=== PATIENT | female | born 1945 | race Caucasian/White ===

== ENCOUNTER 2024-04-13 16:24 | Emergency (ER) | payer OTHER, SELFPAY ==
[2024-04-13] VITALS (15 sets, daily range): BP systolic 151–216; BP diastolic 64–76; PULSE 54–79; RESP 15–25; TEMP 36.9; O2SAT 97–99
--- NOTE | 2024-04-13 16:15 | RT.EKG_ITS ---
APPROVED REPORT Exam: Resting ECG Reason for Exam: Syncope Patient Location: E HR:63 bpm ECG Measurements Heart Rate 63 AXIS AL 151 P 48 QRSd 82 QRS 5 QT 434 T 53 QTc 446 Conclusion Sinus rhythm...normal P axis, V-rate 60- 99 Probable left atrial enlargement...P >50mS, <-0.10mV V1 Probable left ventricular hypertrophy...multiple LVH criteria Physician: elevation in V1-2, no tombstoning, no recip depressions. no stemi
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
[2024-04-13 16:49] LABS: Abs Immature Grans 0.02 10^3/uL (0.0-0.06); Absolute Basophil Count 0.02 10^3/uL (0.0-0.2); Absolute Eosinophil Count 0.11 10^3/uL (0.0-0.7); Absolute Lymphocyte Count 1.94 10^3/uL (1.2-3.4); Absolute Monocyte Count 0.36 10^3/uL (0.1-0.8); Absolute Neutrophil Count 2.77 10^3/uL (1.2-6.7); Basophils % 0.4 %; Eosinophils % 2.1 %; HCT 41.6 % (36.0-46.0); HGB 14.1 g/dL (11.2-15.7); Immature Grans % 0.4 %; Lymphocytes % 37.2 %; MCHC 33.9 % (32.0-36.0); MCV 95 fL (80-95); Monocytes % 6.9 %; Platelet Count 177 10^3/uL (130-400); RDW-SD 45.1 fL; WBC 5.22 10^3/uL (4.4-10.8)
[2024-04-13 16:56] LABS: Bilirubin Negative (Negative); Blood Small (Negative); Clarity Clear (Clear); Glucose Negative (Negative); Ketones Negative (Negative); Leukocyte Esterase Negative (Negative); Nitrite Negative (Negative); Urobilinogen 0.2 mg/dL (Up to 0.2)
[2024-04-13 17:03] LABS: Bacteria Negative HPF (Negative); C & S Indicated? No; Casts Negative LPF (Negative); Crystals Negative HPF (Negative); Epithelial Cells Negative HPF (Negative); Mucus Negative (Negative); RBC 0-2 HPF (0-2); WBC 0-2 HPF (0-5)
[2024-04-13 17:07] LABS: ALT 38 U/L (14-59); AST 38 U/L (15-37); Albumin 4.3 g/dL (3.4-5.0); Alkaline Phosphatase 142 U/L (46-116); BUN 21 mg/dL (7-18); Bilirubin, Total 0.55 mg/dL (0.2-1.0); CREATININE 0.9 mg/dL (0.55-1.02); Calcium 9.7 mg/dL (8.5-10.1); Chloride 109 mmol/L (98-107); Estimated GFR 65.44 (mL/min/1.73m2); Glucose 93 mg/dL (74-106); Magnesium 2.2 mg/dL (1.8-2.4); Potassium 3.6 mmol/L (3.5-5.1); Sodium 145 mmol/L (136-145); Total Protein 7.8 g/dL (6.4-8.2); Troponin I < 50 ng/L (< or =60)
[2024-04-13 17:07] LABS: *AMPHETAMINES SCREEN URINE Negative (Negative); *BARBITURATES SCREEN URINE Negative (Negative); *BENZODIAZEPINES SCREEN URINE Negative (Negative); Cannabinoids THC Negative (Negative); Cocaine Screen,Urine Negative (Negative); METHADONE URINE SCREEN Negative (Negative); OPIATES URINE SCREEN Negative (Negative)
[2024-04-13 17:08] LABS: Tricyclic Antidepressants Negative (Negative)
[2024-04-13 17:18] LABS: ETHANOL BLOOD < 3.0 mg/dL (<10)
== END 2024-04-13 18:03 | disposition home or self-care (01) ==
LOC: ER 18:13
PROVIDERS: Emergency Provider Registered Nurse Emergency; PCP Family Medicine
DX: R55 Syncope and collapse (principal); V48.0XXA Car driver injured in noncollision transport accident in nontraffic accident, initial encounter
CPT/HCPCS: 80053; 80307; 93005; 99284; 70450; 71046; 80320; 81003; 81015; 83735; 84484; 85025; 93010; 99283

== ENCOUNTER → 2024-07-20 13:14 | Outpatient (BNVA) | payer MEDICARE, OTHER, SELFPAY | PROVIDERS: PCP Nurse Practitioner Family; Referring Provider Nurse Practitioner Family; Visit Provider Podiatrist | DX: M20.41 Other hammer toe(s) (acquired), right foot (principal); S93.524A Sprain of metatarsophalangeal joint of right lesser toe(s), initial encounter; M79.671 Pain in right foot; M79.672 Pain in left foot; M77.41 Metatarsalgia, right foot | CPT/HCPCS: 29540; 99214 ==

== ENCOUNTER 2024-08-30 03:44 | Outpatient (CLI) | payer MEDICARE, SELFPAY ==
[2024-08-30 12:53] LABS: Abs Immature Grans 0.01 10^3/uL (0.0-0.06); Absolute Basophil Count 0.02 10^3/uL (0.0-0.2); Absolute Eosinophil Count 0.07 10^3/uL (0.0-0.7); Absolute Lymphocyte Count 1.63 10^3/uL (1.2-3.4); Absolute Monocyte Count 0.34 10^3/uL (0.1-0.8); Absolute Neutrophil Count 3.41 10^3/uL (1.2-6.7); Basophils % 0.4 %; Eosinophils % 1.3 %; HCT 40.7 % (36.0-46.0); HGB 13.4 g/dL (11.2-15.7); Immature Grans % 0.2 %; Lymphocytes % 29.7 %; MCH 31.8 pg (27.0-33.0); MCHC 32.9 % (32.0-36.0); MCV 96 fL (80-95); MPV 10.5 fL (8.0-11.0); Monocytes % 6.2 %; Neutrophils % 62.2 %; Platelet Count 180 10^3/uL (130-400); RBC 4.22 10^6/uL (3.93-5.22); RDW-SD 46.2 fL; WBC 5.48 10^3/uL (4.4-10.8)
[2024-08-30 13:10] LABS: Hemoglobin A1C 5.4 % (<5.7)
[2024-08-30 13:20] LABS: ALT 26 U/L (14-59); Albumin 3.9 g/dL (3.4-5.0); Alkaline Phosphatase 137 U/L (46-116); Anion Gap 8.6 mmol/L (3-11); BUN 22 mg/dL (7-18); Bilirubin, Total 0.75 mg/dL (0.2-1.0); CO2 28.4 mmol/L (21.0-32.0); CREATININE 0.7 mg/dL (0.55-1.02); Calcium 9.7 mg/dL (8.5-10.1); Calculated LDL 91 mg/dL (<100); Chloride 108 mmol/L (98-107); Cholesterol 204 mg/dL (<200); Estimated GFR 87.92 (mL/min/1.73m2); Glucose 101 mg/dL (74-106); HDL Cholesterol 100 mg/dL (40-60); Potassium 4.5 mmol/L (3.5-5.1); Sodium 145 mmol/L (136-145); TSH (W/Ref FT4) 1.12 uIU/mL (0.36-3.74); Total Protein 7.3 g/dL (6.4-8.2); Triglyceride 69 mg/dL (<150)
[2024-08-30 13:45] LABS: AST 24 U/L (15-37)
[2024-08-30 17:44] LABS: Lab Add On Test DONE
[2024-08-30 17:47] LABS: GGT 15 U/L (5-55)
[2024-08-30 19:32] LABS: HBs Antibody, Quant <3.1 mIU/mL (See Note); Hep B Surface Ab Negative (See Note); Hepatitis B Core Antibody Negative (Negative); Hepatitis B Surface Antigen Negative (Negative)
[2024-08-30 19:39] LABS: HIV-1/2 Ag & Ab Screen Negative (Negative)
[2024-08-30 19:45] LABS: Hepatitis C Ab w Rflx HCV PCR Negative (Negative)
== END 2024-08-30 03:45 | disposition home or self-care (01) ==
LOC: LOS 03:44
PROVIDERS: PCP Nurse Practitioner Family; Visit Provider Nurse Practitioner Family
DX: E78.5 Hyperlipidemia, unspecified (principal); R73.01 Impaired fasting glucose; Z11.59 Encounter for screening for other viral diseases; I34.0 Nonrheumatic mitral (valve) insufficiency; I10 Essential (primary) hypertension; Z11.4 Encounter for screening for human immunodeficiency virus [HIV]; R74.8 Abnormal levels of other serum enzymes
CPT/HCPCS: 36415; 80053; 80061; 86704; 86706; 86803; 87340; 87389; 82977; 83036; 84443; 85025

== ENCOUNTER 2024-08-31 02:25 | Outpatient (CLI) | payer MEDICARE, SELFPAY ==
--- NOTE | 2024-08-31 07:00 | DI.RAD_ITS ---
Exam(s) XR FOOT RT COMPLETE EXAM: XR FOOT RT COMPLETE CLINICAL HISTORY: Pain in right foot,m79.671. TECHNIQUE: 2D digital imaging was performed. Three views. COMPARISON: CR XR FOOT LT COMPLETE from 08/31/2024 FINDINGS: BONES: No acute fracture is present. No bony destructive lesion is seen. Plantar calcaneal spur. JOINTS: No dislocation present. Mild degenerative changes. Varus deviation of the 2nd through 5th t oes. SOFT TISSUE: Normal. IMPRESSION: Varus deviation of the 2nd through 5th toes. Mild degenerative changes and small heel spur. DATA REPOSITORY: RADIATION DOSE DELIVERED:
--- NOTE | 2024-08-31 12:15 | DI.RAD_ITS ---
Exam(s) XR FOOT LT COMPLETE EXAM: XR FOOT LT COMPLETE CLINICAL HISTORY: Jose M79.672 PAIN LEFT FOOT. TECHNIQUE: 2D digital imaging was performed. Three views. COMPARISON: CR XR FOOT RT COMPLETE from 08/31/2024 FINDINGS: BONES: No acute fracture is present. No bony destructive lesion is seen. JOINTS: No dislocation present. Mild degenerative changes. Varus deviation of the 2nd through 5th toes. Plantar arch is maintained. SOFT TISSUE: Normal. IMPRESSION: Varus deviation of the 2nd through 5th toes. Mild degenerative changes. DATA REPOSITORY: RADIATION DOSE DELIVERED:
== END 2024-08-31 02:45 ==
LOC: DI 02:25
PROVIDERS: PCP Nurse Practitioner Family; Visit Provider Podiatrist
DX: M79.671 Pain in right foot (principal); M79.672 Pain in left foot
CPT/HCPCS: 73630

== ENCOUNTER 2024-09-07 00:54 | Outpatient (CLI) | payer MEDICARE, SELFPAY ==
--- NOTE | 2024-09-07 08:30 | DI.US_ITS ---
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 Ejection fraction is 60 to 65%. Wall motio n is normal Normal right ventricular size and function Left atrium is severely dilated. Right atrium is moderately dilated Aortic valve is sclerotic. Number of leaflets cannot be determined. There is moderate aortic stenos is. Peak gradient is 44, mean 28 mmHg. Calculated aortic valve area 0.8 cm??. There is no aortic r egurgitation Mitral annular calcification. Mild to moderate mitral regurgitation Estimated right ventricular systolic pressure is 29 mmHg Wall motion Left Ventricle The left ventricle is normal size. The left ventricular systolic function is normal. The left ventric ular ejection fraction is within the normal range. There is normal left ventricular wall thickness. T here is normal LV segmental wall motion. There is no ventricular septal defect visualized. LVEF is 60 -65%. Right Ventricle The right ventricle is normal size. The right ventricular systolic function is normal. Atria Left atrium is severely dilated. Right atrium is moderately dilated. The interatrial septum is intact with no evidence for an atrial septal defect. Aortic Valve Aortic valve is calcified. Number of aortic valve leaflets could not be assessed. Moderate aortic donald nosis. Peak aortic valve gradient is 44.38_mmHg. Highest mean aortic valve gradient is 28.14_mmHg. Ca lculated SAHIL by the continuity equation is 0.8 cm2. No aortic regurgitation is present. Mitral Valve Miitral annular calcification. No evidence of mitral valve stenosis. Mild to moderate mitral regurgit ation. Tricuspid Valve The tricuspid valve is normal in structure. There is no tricuspid valve stenosis. Trace tricuspid reg urgitation. The RVSP is 28.8mmHg. Pulmonic Valve The pulmonary valve is normal in structure. There is no pulmonic valvular stenosis. Trace pulmonic re gurgitation. Great Vessels The aortic root is normal in size. Aortic arch is not well visualized. IVC is normal in size and trupti apses >50% with inspiration. Pericardium There is no pericardial effusion. 2D Dimensions IVSD d PLAX 0.91 cm F: 0.6-1.0 Ao Root d 2.39 cm F: 2.7 - 3.3 LVPW d PLAX 0.90 cm F: 0.6 - 1.0 Left Atrium 0.00 cm F: 2.7 - 3.8 LVID d PLAX 4.20 cm F: 3.8 - 5.2 LVDs 2.73 cm F: 2.2 - 3.5 LV EF Teichholz 64.7 % FS 35.03 % LV EDV (Teich) 78.6 mL LV ESV (Teich) 27.7 mL Auto EF LV EDV A4C 83.7 mL LV EDV A2C 101.3 mL LV EDV BP 91.5 mL LV ESV A4C 33.9 mL LV ESV A2C 41.5 mL LV ESV BP 37.9 mL LVEF(%) A4C 59.5 % LVEF(%) A2C 59.0 % LVEF(%) BP 58.5 % LV SV A4C 49.8 ml LV SV A2C 59.8 ml LV SV BP 53.6 ml LV CO A4C 2.5 L/min LV CO A2C 3.2 L/min LV CO BP 2.9 L/min HR A4C 50.78 BPM HR A2C 53.34 BPM LV EDV Index (BP) LA Volume LA Length A4C 4.4 cm LA Length A2C 5.4 cm LA Area A4C s 17.27 cm2 LA Area A2C s 23.00 cm2 LA Vol A4C A-L 58.06 mL LA Vol A2C A-L 83.35 mL LA Vol Biplane A-L 77.3 mL LA Vol/BSA A4C A-L LA Vol/BSA A2C A-L LA Vol/BSA BP A-L 51.9 mL/m2 LA Vol A4C MOD 53.8 mL LA Vol A2C MOD 77.4 mL LA Vol BP MOD 71.7 mL RA Volume RA Area A4C 13.2 cm2 RA ESV A4C (A-L) 35.5mL RA Vol/BSA A4C A-L RA Length A4C 4.2 cm RA ESV A4C (MOD) 32.3mL LV Diastology MV E Vmax 1.14 (0.4-1.3 m/s) MV A Vmax 1.25 (0.4-1.3 m/s) E/A Ratio 0.9 Aortic Valve AoV Vmax 3.33 m/s LVOT Vmax 0.84 m/s AoV Peak Grad 44.4 mmHg LVOT Peak Grad 2.8 mmHg AoV VTI 0.939 m LVOT VTI 0.237 m AoV Mean Anuj. 2.54 m/s LVOT Mean Grad 1.8 mmHg AoV Mean Grad 28.1 mmHg AV Regurg Peak Gr. 44.38 mmHg Velocity Ratio 0.25 Mitral Valve MV DT 290 (160-240 msec) MV Vmax TIPS 1.24 m/s MV Mean Grad 2.0 (<2mmHg) MV VTI 0.516 m Pulmonary Valve PV Vmax 0.87 (0.5-1.5 m/s) RVOT Vmax 0.69 m/s PV Peak Grad 3.0 mmHg RVOT Peak Gr. 1.9 mmHg PV Mean Anuj 0.63 m/s RVOT VTI 0.152 m PV Mean Grad 1.8 mmHg RVOT Mean Gr. 1.3 mmHg Tricuspid Valve RA Pressure 3.00 mmHg TR Vmax 2.54 m/s TR Peak Grad 25.7 mmHg RVSP (TR) 28.8 mmHg
== END 2024-09-07 01:14 ==
LOC: DI 00:54
PROVIDERS: PCP Nurse Practitioner Family; Visit Provider Nurse Practitioner Family
DX: I34.0 Nonrheumatic mitral (valve) insufficiency (principal); I35.8 Other nonrheumatic aortic valve disorders; I42.0 Dilated cardiomyopathy
CPT/HCPCS: 93306

== ENCOUNTER 2025-08-07 11:27 | Outpatient (RCR) | payer MEDICARE, SELFPAY ==
--- NOTE | 2025-08-07 11:15 | RT.EKG_ITS ---
APPROVED REPORT Exam: Resting ECG Reason for Exam: CARDIAC REHAB BASELINE Patient Location: O HR:47 bpm ECG Measurements Heart Rate 47 AXIS GA 136 P 75 QRSd 94 QRS 46 QT 496 T 56 QTc 439 Conclusion Sinus bradycardia...rate< 50 Left ventricular hypertrophy...multiple voltage criteria
== END 2025-08-16 23:59 | disposition home or self-care (01) ==
LOC: CR 11:27
PROVIDERS: PCP Nurse Practitioner Family; Visit Provider Internal Medicine Cardiovascular Disease
DX: I35.0 Nonrheumatic aortic (valve) stenosis (principal); Z95.5 Presence of coronary angioplasty implant and graft; Z51.89 Encounter for other specified aftercare
CPT/HCPCS: S9472